=== PATIENT | male | born 1990 | race Caucasian/White ===

== ENCOUNTER 2020-11-02 11:53 | Emergency (ER) | payer OTHER ==
[~2020-11-02] VITALS: Ht 177.8 cm; Wt 82.1 kg
[2020-11-02] MEDS ORDERED: KETO10TA2 PO (14:42)
[2020-11-02] MEDS ORDERED: AMOX-CLAV 875-1 EACH PO (14:42)
== END 2020-11-02 14:56 | disposition home or self-care (01) ==
LOC: ER 11:53
DX: K04.7 Periapical abscess without sinus (principal)